=== PATIENT | male | born 1970 | race Caucasian/White ===

== ENCOUNTER 2025-05-04 16:15 | Observation (INO) ==
[2025-05-04] MEDS: LORazepam 2 MG/ML VIAL IM ONE (19:18)
[2025-05-04 21:06] LABS: Alcohol,Blood < 0.01 g/dL ({0.01, null})
[2025-05-04] MEDS: 0.9 % SODIUM CHLORIDE 1,000 ML IV ONE (21:49)
[2025-05-04 21:57] LABS: ALT/SGPT 224 U/L (<40); AST/SGOT 79 U/L (<40); Albumin 3.0 gm/dL (3.2-5.2); Albumin/Globulin Ratio 1.0 (1.0-2.3); Alkaline Phosphatase 854 U/L (39-117); Anion Gap 29.7 (8.0-16.0); Bilirubin,Total 1.1 mg/dL (0.1-1.0); Blood Urea Nitrogen 218 mg/dL (6-20); Calcium 6.9 mg/dL (8.6-10.4); Carbon Dioxide 10 mmol/L (22-30); Chloride 83 mmol/L (96-108); Globulin 2.9 gm/dL (2.2-3.7); Glucose 139 mg/dL (70-105); Potassium 6.5 mmol/L (3.3-5.1); Sodium 123 mmol/L (133-145)
[2025-05-04 22:16] LABS: Basophils # (Auto) 0.01 K/mcL (0.00-0.30); Basophils % (Auto) 0.1 % (0.0-2.0); Eosinophils # (Auto) 0.31 K/mcL (0.00-0.70); Eosinophils % (Auto) 2.2 % (0.0-7.0); Hematocrit 21.0 % (40.1-51.0); Hemoglobin 7.1 g/dL (13.7-17.5); Lymphocytes # (Auto) 0.35 K/mcL (1.50-4.80); Lymphocytes % (Auto) 2.5 % (15.5-49.0); Mean Corpuscular HGB Conc 33.8 g/dL (31.0-36.0); Monocytes # (Auto) 0.98 K/mcL (0.10-0.90); Monocytes % (Auto) 7.0 % (1.0-12.0); Neutrophils % (Auto) 87.2 % (38.0-78.0); Platelet Count 125 K/mcL (140-440); WBC 14.0 K/mcL (4.5-11.0)
[2025-05-04 22:21] LABS: RBC 2.40 M/mcL (4.63-6.08)
[2025-05-04] MEDS: DEXTROSE 50% 50 ML VIAL IV ONE (23:09)
[2025-05-04] MEDS: SODIUM ZIRCONIUM CYCLOSILICATE 10 GM PACKET PO ONE (23:09)
[2025-05-04] MEDS: INSULIN REGULAR, HUMAN 1 UNIT/0.01 ML UNIT IV ONE (23:09)
[2025-05-05] MEDS ORDERED: POLYETHYLENE GLYCOL 3350 17 GM PACKET PO PRN (01:08)
[2025-05-05] MEDS ORDERED: LORazepam 2 MG/ML VIAL IV PRN (01:08)
[2025-05-05] MEDS ORDERED: ALBUTEROL SULFATE 2.5 MG/3 ML NEBULIZER NEB PRN (01:08)
[2025-05-05] MEDS ORDERED: ONDANSETRON 4 MG/2 ML VIAL IV PRN (01:08)
[2025-05-05] MEDS ORDERED: SENNOSIDES 1 TABLET PO PRN (01:08)
[2025-05-05] MEDS ORDERED: diphenhydrAMINE 50 MG/ML VIAL IV PRN (01:15)
[2025-05-05] MEDS: 0.9 % SODIUM CHLORIDE 10 ML SYRINGE IV SCH (05:12)
[2025-05-05] MEDS ORDERED: 0.9 % SODIUM CHLORIDE 10 ML SYRINGE IV SCH (06:00)
[2025-05-05] MEDS ORDERED: HALOPERIDOL LACTATE 5 MG/ML VIAL IV PRN (11:07)
[2025-05-05] MEDS ORDERED: DIAZEPAM 10 MG/2 ML SYRINGE IV PRN (12:39)
[2025-05-05] MEDS ORDERED: morphine 20 MG/ML ML SL PRN (15:50)
[2025-05-06] MEDS ORDERED: CALCIUM CARBONATE 500 MG TAB.CHEW CHEWED PRN (10:48)
[2025-05-06] MEDS: SIMETHICONE 80 MG TAB.CHEW CHEWED ONE (10:57)
== END 2025-05-06 15:14 ==
LOC: ED 16:15 → MEDSUR 05-05 00:52 → INTOOBSV 05-05 00:52
PROVIDERS: ADMIT Internal Medicine; ATTEND Internal Medicine